=== PATIENT | female | born 1980 | race Caucasian/White ===

== ENCOUNTER → 2024-05-17 06:45 | Outpatient (REF) | payer OTHER, SELFPAY | LOC: MRI 3T 06:45 | PROVIDERS: ATTENDING PHYSICIAN Psychiatry & Neurology Neurology; FAMILY PHYSICIAN Physician Assistant | DX: R41.3 Other amnesia (principal) | CPT/HCPCS: 70551 ==

== ENCOUNTER → 2024-12-25 14:55 | Outpatient (REF) | payer OTHER, SELFPAY | LOC: WDC 14:55 | PROVIDERS: ATTENDING PHYSICIAN Family Medicine | DX: Z12.31 Encounter for screening mammogram for malignant neoplasm of breast (principal) | CPT/HCPCS: 77063; 77067 ==